=== PATIENT | female | born 1995 | race Two or more races ===

== ENCOUNTER 2024-07-03 05:30 | Emergency (ER) | payer MEDICAID, SELFPAY ==
[2024-07-03 05:31] VITALS: BMI 32.8
[2024-07-03 05:41] VITALS: BP 122/85; PULSE 97; RESP 16; TEMP 36.7; O2SAT 97
--- NOTE | 2024-07-03 06:22 | PD.EDBACK ---
ED Back Injury Pain RME/HPI General Chief Complaint: Back Pain/Injury Stated Complaint: UPPER BACK PAINHX SCOLIOSIS Time Seen by Provider: 07/03/24 06:10 Arrival date/time: 07/03/24 05:30 Limitations: no limitations RME / HPI RME / HPI Narrative: 29-year-old female with past medical history of scoliosis and nephrectomy status post renal cancer presents for evaluation of thoracic back pain. She describes it as consistent with her chronic back pain but more severe than usual. She reports taking 500 mg of Tylenol at 03 100 with minimal relief of symptoms. She denies recent trauma. She reports that she was in PT for her chronic back pain several years ago but stopped going as she did not feel it helped with her symptoms. She denies chest pain, cough, abdominal pain, dysuria, hematuria, numbness, tingling, bladder and bowel incontinence. MD Complaint: back pain Onset (ago): year(s) Duration: constant Similar Symptoms Previously: Yes Location: thoracic spine Severity: severe Quality: sharp Radiation: none Exacerbating factors: movement Associated symptoms: denies other symptoms Related Data Home Medications ?Medication ?Instructions ?Recorded ?Confirmed Cholecalciferol * (VITAMIN D3 *) 3,000 unit PO QDAY SUPPLEMENT #0 05/11/15 tabs Previous Rx's ?Medication ?Instructions ?Recorded Hydrocodone/Acetaminophen * (NORCO 1 tab PO Q6H PRN PAIN #14 tabs 05/11/15 5/325 *) Allergies Allergy/AdvReac Type Severity Reaction Status Date / Time NKA* Allergy Uncoded 07/03/24 05:35 Review of Systems Constitutional Constitutional: Denies chills, Denies fever(s), Denies frequent falls and Denies headache(s) ENT Ears, Nose, Mouth, and Throat: Denies headache(s), Denies neck pain and Denies vertigo Cardiovascular Cardiovascular: Denies chest pain, Denies dyspnea and Denies leg edema Respiratory Respiratory: Denies cough and Denies dyspnea Gastrointestinal Gastrointestinal: Denies abdominal pain, Denies change in bowel habits, Denies nausea and Denies vomiting Musculoskeletal Musculoskeletal: Reports back pain, Denies neck pain, Denies numbness and Denies tingling Integumentary/Breasts Skin/Breast: Denies rash Neurologic Neurologic: Denies frequent falls, Denies headache(s), Denies numbness, Denies radicular pain, Denies tingling and Denies vertigo Past Medical History Past Medical History CARDIAC: Negative Cardiac Disorders RESPIRATORY: Negative Asthma GENITOURINARY: Negative Renal Disease MUSCULOSKELETAL: Positive Scoliosis ENDOCRINE: Negative Diabetes Mellitus Type 2 HEMATOLOGIC: Negative Sickle Cell Disease Social History SMOKING STATUS: Never smoker SUBSTANCE USE: does not use ED Exam General Limitations: Present no limitations General appearance: Present alert and in no apparent distress Head Head exam: Present atraumatic and normocephalic Eye Eye exam: Present normal appearance and EOMI ENT ENT exam: Present normal oropharynx, mucous membranes moist and normal external ear exam Neck Neck exam: Present normal inspection and full ROM Chest Chest inspection: Present normal inspection and symmetric chest wall rise Respiratory Respiratory exam: Present normal lung sounds bilaterally; Absent respiratory distress or wheezes Cardiovascular Cardiovascular exam: Present regular rate, +S1 and +S2 Abdominal Exam Abdominal exam: Present soft; Absent distention or tenderness Extremities Exam Extremities exam: Present normal inspection and full ROM; Absent pedal edema or calf tenderness Back Exam Back exam: Present other (S-shaped curvature at thoracic spine. No overlying ecchymosis or erythema. ); Absent CVA tenderness (R), CVA tenderness (L), paraspinal tenderness or vertebral tenderness Neurological Exam Neurological exam: Present alert, normal gait and reflexes normal (patellar, bilateral. ); Absent motor sensory deficit Psychiatric Psychiatric exam: Present normal affect Skin Skin exam: Present warm, dry, intact and normal color Course Quality Measures none Orders Category Date Time Status HYDROcodone*/APAP 5/325 [[place] 5/325] Med 07/03/24 06:22 Discontinued 1 tab PO X1 ONE Lidocaine 5% Patch Med 07/03/24 06:22 Discontinued 1 patch TOP X1 ONE Vital Signs Vital signs: Vital Signs Temperature 98.1 F 07/03/24 05:41 Pulse Rate 97 07/03/24 05:41 Respiratory Rate 16 07/03/24 05:41 Blood Pressure 122/85 H 07/03/24 05:41 Pulse Oximetry (%) 97 07/03/24 05:41 Oxygen Delivery Method Room Air 07/03/24 05:41 Pulse ox 97% on room air, within normal limits. Back Pain / Injury MDM Narrative MDM Narrative:: 29-year-old female with past medical history of nephrectomy status post renal cancer in remission and scoliosis presents for evaluation of chronic thoracic back pain. She reported that she came in for pain management as Tylenol was not helping at home. Vital signs reassuring. No saddle paresthesia or bladder or bowel incontinence therefore low concern for cauda equina. No hematuria, dysuria or fever and patient nontoxic-appearing therefore low concern for pyelonephritis or kidney stone at this time. No abdominal pain so low concern for AAA. No recent injury so x-ray was deferred. Pain consistent with scoliosis pain per patient. Ultimately she was given [place] and lidocaine patch with plan to follow-up with primary care within the week for further evaluation and treatment of her chronic scoliosis. We discussed at length PT and I encouraged her to try to go to physical therapy for her chronic pain as it takes time for it to improve symptoms. Patient stable at time of discharge Patient data External records reviewed:: [facility] previous records Clinical information provided by:: patient Social determinants that could affect healthcare access:: none Patient has the following chronic illnesses:: Scoliosis. How is presenting disease/condition affected by chronic disease/condition?: exacerbated by Evaluation data The following diagnostics were reviewed and interpreted by me:: other (specify) Lab and/or radiology exams considered but not ordered:: Considered not ordered. Interpretation Summary: Considered not ordered. Medications / Prescriptions Medications or Prescriptions considered but not ordered:: Rx given. Medication administrations:: Medication Administration History Discontinued Medications Hydrocodone Bitart/Acetaminophen (Hydrocodone/Apap 5/325 Tablet) 1 tab PO X1 ONE Stop: 07/03/24 06:23 Last Admin: 07/03/24 06:31 Dose: 1 tab Documented By: EE Lidocaine (Lidocaine 5% 1 Patch) 1 patch TOP X1 ONE Stop: 07/03/24 06:23 Last Admin: 07/03/24 06:31 Dose: 1 patch Documented By: EE Rx given. Consultations Consultation(s) initiated? (list below): No Diagnosis Differential diagnosis back pain/injury: lumbar radiculopathy, strain of lumbar region, pyelonephritis, thoracic back pain and AAA Most likely diagnosis given after review of the tests above:: Chronic thoracic back pain. Admission Indicated Admission indicated?: not indicated Admission Request Was there a request for admission?: No Disposition Plan Disposition Plan: Discharge Discharge Attestation Discharge Attestation: The patient and all family members were given an opportunity to ask questions and understood the discharge instructions. Discharge instructions specifically effects, indications for sooner follow up or return to the emergency department, and the expected course of current diagnosis. Patient condition: Stable Discharge Plan Plan Patient Disposition: HOME (Self Care) Disposition Comment: stable Prescriptions/Referrals Prescriptions/Med Rec: No Action Cholecalciferol * (VITAMIN D3 *) 3 000 tablet 3,000 unit PO QDAY Qty: 0 Hydrocodone/Acetaminophen * (NORCO 5/325 *) 1 TAB tablet 1 tab PO Q6H PRN (Reason: PAIN) Qty: 14 0RF Problem List Clinical Impression: Thoracic back pain Patient/Caregiver Discharge Instructions Other Activity Instructions:: Follow-up with primary care within the week for further management of your scoliosis. Consider physical therapy as we discussed. Continue to take Tylenol as needed for pain not exceeding the maximum value listed on the back of the box. Return to the ED if your symptoms worsen or change. Education Materials: ED Back Care Tips Print Language: Yakut Stand Alone Forms: Felipa Award Info., Patient Portal Info Letter PA/BHUMI Supervising Physician LYLE/BHUMI Supervising Physician: Dr. Peter
[2024-07-03] MEDS: HYDROcodone/APAP 5/325 TABLET 1 TAB PO (06:31)
[2024-07-03] MEDS: LIDOCAINE 5% 1 PATCH TOP (06:31)
== END 2024-07-03 11:58 | disposition home or self-care (01) ==
LOC: SERX 06:41
PROVIDERS: Emergency Provider Emergency Medicine; PCP Physician Assistant
DX: M54.6 Pain in thoracic spine (principal)
CPT/HCPCS: 99283; A9270